=== PATIENT | female | born 1955 | race Caucasian/White ===

== ENCOUNTER 2021-09-01 01:12 | Emergency (ER) | payer MEDICARE, OTHER ==
[2021-09-01] MEDS ORDERED: Sodium Chloride 0.9% 10 ML Syringe FLUSH PRN (01:37)
[2021-09-01] MEDS ORDERED: Acetaminophen 500 MG Tab PO ONE (01:43)
--- NOTE | 2021-09-01 01:50 | EDM.PDOC ---
ED HPI GENERAL MEDICAL PROBLEM - General Chief Complaint: Fever Stated Complaint: 98.1* TEMP, COUGH, BREATHING, FLEM Time Seen by Provider: 09/01/21 01:44 Source of Information: Reports: Patient, Family History Limitations: Reports: No Limitations - History of Present Illness INITIAL COMMENTS - FREE TEXT/NARRATIVE: 66 y/o F brought in by for eval of sudden onset fever, ataxia, sore throat that began about 1 pm yesterday. Pt was at the gym and had an episode where she seemed out of it and coulnt stand. Staff at the gym gave the pt a glass of water and she appear to improve and had no complaints. picked pt up from the gym and took her home. At home noticed pt seemed to be unsteady on her feet and felt warm to the touch. gave pt an aspirin at 9pm tonight after becoming concerned for her fever. Pts condition did not improve so brought pt to the hospital. She denies sumner, vision prob, jaw pain, neck pain, neck stiffness, cp, db, abd pn, pelvic pn, ext pain, body aches, chills, NVD, meds, med hx, allergies, drugs etoh. - Related Data Allergies Allergy/AdvReac Type Severity Reaction Status Date / Time No Known Allergies Allergy Verified 09/01/21 02:17 Home Meds: Home Meds . [No Known Home Meds] 09/01/21 [History] ED ROS GENERAL - Review of Systems Review Of Systems: Comprehensive ROS is negative, except as noted in HPI. ED EXAM, SEPSIS - Physical Exam Exam: See Below Exam Limited By: No Limitations General Appearance: Alert, Mild Distress (appears dazed, is awake and looking around but stares off into space at times. ) Eye Exam: Bilateral Eye: PERRL Ears: Normal External Exam, Normal Canal, Hearing Grossly Normal, Normal TMs Nose: Normal Inspection, Normal Mucosa, No Blood Throat/Mouth: Normal Inspection, Normal Lips, Normal Teeth, Normal Gums, Normal Oropharynx, Normal Voice, No Airway Compromise Head: Atraumatic, Normocephalic Neck: Normal Inspection, Supple, Non-Tender, Full Range of Motion Respiratory/Chest: No Respiratory Distress, Lungs Clear, Normal Breath Sounds, No Accessory Muscle Use, Chest Non-Tender Cardiovascular: Normal Peripheral Pulses, Regular Rate, Rhythm, No Edema, No Gallop, No JVD, No Murmur, No Rub GI/Abdominal Exam: Soft, Non-Tender (Female) Exam: Deferred Rectal (Female) Exam: Deferred Back: Normal Inspection, Full Range of Motion Extremities: Normal Inspection, Normal Range of Motion, Non-Tender, No Pedal Edema, Normal Capillary Refill Neurological: Oriented, CN II-XII Intact, Normal Cognition, No Motor/Sensory Deficits Psychiatric: Flat Affect Skin: Dry, Intact, Other (hot to the touch) Course - Vital Signs Last Recorded V/S: Last Vital Signs Temp 103 F H 09/01/21 02:16 Pulse 104 H 09/01/21 01:27 Resp 18 09/01/21 01:27 BP 144/86 H 09/01/21 01:27 Pulse Ox 91 L 09/01/21 01:27 - Orders/Labs/Meds Orders: Active Orders 24 hr Category Date Time Status Peripheral IV Care [RC] . DIRECTED Care 09/01/21 01:42 Active C-REACTIVE PROTEIN [CHEM] Stat Lab 09/01/21 02:25 Stop Req CBC WITH AUTO DIFF [HEME] Stat Lab 09/01/21 02:25 Stop Req CMP [COMPREHENSIVE METABOLIC PN,CMP] [CHEM] Stat Lab 09/01/21 02:25 Stop Req LACTATE SEPSIS W/ REFLEX [CHEM] Stat Lab 09/01/21 02:25 Stop Req Sodium Chloride 0.9% [Saline Flush] Med 09/01/21 01:37 Active 10 ml FLUSH ASDIRECTED PRN Peripheral IV Insertion Adult [OM.PC] Routine Oth 09/01/21 01:42 Ordered Medication Orders Sodium Chloride (Sodium Chloride 0.9% 10 Ml Syringe) 10 ml FLUSH ASDIRECTED PRN PRN Reason: Keep Vein Open Labs: Laboratory Tests 09/01/21 Range/Units 01:20 Influenza Type A RNA Positive H (NEGATIVE) Influenza Type B RNA Negative (NEGATIVE) SARS-CoV-2 RNA (KYRIE) Negative (NEGATIVE) Meds: Medications Generic Name Dose Route Start Last Admin Trade Name Freq PRN Reason Stop Dose Admin Sodium Chloride 10 ml 09/01/21 01:37 Sodium Chloride 0.9% 10 Ml Syringe FLUSH ASDIRECTED PRN Keep Vein Open Discontinued Medications Generic Name Dose Route Start Last Admin Trade Name Freq PRN Reason Stop Dose Admin Acetaminophen 1,000 mg 09/01/21 01:43 09/01/21 02:16 Acetaminophen 500 Mg Tab PO 09/01/21 01:44 1,000 mg ONETIME ONE Administration Ketorolac Tromethamine 30 mg 09/01/21 02:50 09/01/21 03:00 Ketorolac 30 Mg/Ml Sdv IVPUSH 09/01/21 02:51 30 mg ONETIME ONE Administration Oseltamivir Phosphate 75 mg 09/01/21 02:49 09/01/21 03:00 Oseltamivir 75 Mg Cap PO 09/01/21 02:50 75 mg ONETIME ONE Administration - Re-Assessments/Exams Free Text/Narrative Re-Assessment/Exam: 09/01/21 02:50 The pt has influenza, I will provide an RX fo Tamiflu. I discussed the labs and exam wit the pt and her and explained the results. Departure - Departure Time of Disposition: 02:52 Disposition: Home, Self-Care 01 Condition: Fair Clinical Impression: Influenza A - Discharge Information *PRESCRIPTION DRUG MONITORING PROGRAM REVIEWED*: Not Applicable *COPY OF PRESCRIPTION DRUG MONITORING REPORT IN PATIENT SANTOS: Not Applicable Instructions: Influenza, Adult, [id number] Forms: ED Department Discharge Additional Instructions: RX: Tamiflu Use tylenol and ibuprofen liquid gels for fever and pain control as needed. Continue to push fluids to maintain hydration. Isolate at home until your are fever free for 24 hrs with no medications in your system. If any new symptoms or concerns develop contact your primary care facility or return to the ER. Sepsis Event Note (ED) - Evaluation Sepsis Screening Result: Possible Sepsis Risk - Focused Exam Vital Signs: Vital Signs Temp Temp Pulse Resp BP Pulse Ox 09/01/21 02:16 103 F H 09/01/21 01:27 103 F H 104 H 18 144/86 H 91 L - My Orders Last 24 Hours: My Active Orders 09/01/21 01:37 Sodium Chloride 0.9% [Saline Flush] 10 ml FLUSH ASDIRECTED PRN 09/01/21 01:42 Peripheral IV Care [RC] . DIRECTED Peripheral IV Insertion Adult [OM.PC] Routine 09/01/21 02:25 C-REACTIVE PROTEIN [CHEM] Stat CBC WITH AUTO DIFF [HEME] Stat CMP [COMPREHENSIVE METABOLIC PN,CMP] [CHEM] Stat LACTATE SEPSIS W/ REFLEX [CHEM] Stat - Assessment/Plan Last 24 Hours: My Active Orders 09/01/21 01:37 Sodium Chloride 0.9% [Saline Flush] 10 ml FLUSH ASDIRECTED PRN 09/01/21 01:42 Peripheral IV Care [RC] . DIRECTED Peripheral IV Insertion Adult [OM.PC] Routine 09/01/21 02:25 C-REACTIVE PROTEIN [CHEM] Stat CBC WITH AUTO DIFF [HEME] Stat CMP [COMPREHENSIVE METABOLIC PN,CMP] [CHEM] Stat LACTATE SEPSIS W/ REFLEX [CHEM] Stat
[2021-09-01 02:20] LABS: CORONAVIRUS COVID-19 NAA NEGATIVE (NEGATIVE)
[2021-09-01] MEDS ORDERED: Oseltamivir 75 MG Cap PO ONE (02:49)
[2021-09-01] MEDS ORDERED: Ketorolac 30 MG/ML SDV IVPUSH ONE (02:50)
== END 2021-09-01 03:23 | disposition home or self-care (01) ==
LOC: DL.ED 01:12
DX: J10.1 Influenza due to other identified influenza virus with other respiratory manifestations (principal); Z20.822 Contact with and (suspected) exposure to COVID-19
CPT/HCPCS: 0240U; 36415; 96374; 99283; A9270; J1885

== ENCOUNTER 2024-10-02 00:53 | Emergency (ER) | payer MEDICARE, OTHER ==
[2024-10-02] MEDS: Ondansetron 4 MG Tab.DIS PO ONE (01:32)
[2024-10-02] MEDS: Loperamide 2 MG Cap PO ONE ×2 (01:32→02:16)
[2024-10-02] MEDS: Sodium Chloride 0.9% 1,000 ML IV ONE (02:17)
[2024-10-02 02:18] LABS: BASOPHILS PERCENT AUTO 0.1 % (0.0-1.0); EOSINOPHILS PERCENT AUTO 0.1 % (1.0-3.0); HEMATOCRIT 42.2 % (37.0-47.0); HEMOGLOBIN 13.9 g/dL (12.0-16.0); LYMPHOCYTES PERCENT AUTO 2.1 % (20.5-50.1); MEAN CORPUSCULAR HEMOGLOBIN 30.5 pg (27.0-34.0); MEAN CORPUSCULAR HGB CONC 32.9 g/dL (33.0-35.0); MEAN CORPUSCULAR VOLUME 92.5 fL (80-100); MONOCYTES PERCENT AUTO 4.1 % (2-8); NEUTROPHILS PERCENT AUTO 93.6 % (42.2-75.2); PLATELET COUNT,PLT 275 10^3/uL (150-450); RED BLOOD CELL COUNT 4.56 10^6/uL (4.2-5.4); WHITE BLOOD CELL COUNT,WBC 14.8 10^3/uL (5.0-10.0)
[2024-10-02 02:35] LABS: A/G RATIO 1.1; ALBUMIN 3.7 g/dL (3.4-5.0); BILIRUBIN TOTAL 0.6 mg/dL (0.2-1.0); CALCIUM 8.3 mg/dL (8.5-10.1); CREATININE 0.96 mg/dL (0.55-1.02); EST CRCL DRUG DOSING (CG) 46.41 mL/min; MAGNESIUM 1.6 mg/dL (1.8-2.4)
[2024-10-02] MEDS: Take Home: Ondansetron 4 MG Tab.DIS, 5 Tab Pack PO ONE (03:14)
== END 2024-10-02 03:21 | disposition home or self-care (01) ==
LOC: DL.ED 00:53
DX: K52.9 Noninfective gastroenteritis and colitis, unspecified (principal)
CPT/HCPCS: 36415; 80053; 83735; 85025; 96360; 99284; A9270; J7030; Q0162; 99283